=== PATIENT | male | born 1940 | race Caucasian/White ===

== ENCOUNTER → 2017-08-15 | Outpatient (CLI) | payer MEDICARE | LOC: M PLARAD 09:27 | DX: M25.512 Pain in left shoulder (principal) | CPT/HCPCS: 73221 ==

== ENCOUNTER 2024-04-11 06:05 | Day surgery (SDC) | payer MEDICARE ==
[~2024-04-11] VITALS: Ht 165.1 cm; Wt 74.8 kg
[~2024-04-11 06:05] MED LIST: ALFU10TA23 PO; DAPA10TA5 PO; ENTR1TAB7 PO; FARX1TAB3 PO; FINA5TAB2 PO; METO1TAB7 PO; POTA-298 PO; SPIR-10 PO; TAMS1CAP17 PO; TORS20TA2 PO
[2024-04-11] MEDS: LIDOCAINE 3.5 % 1ML OPHTH TOPICAL GEL OU ONE (06:40)
[2024-04-11] MEDS ORDERED: fentaNYL 100 MCG/2 ML INJECTION As Ordered ONE (06:58)
[2024-04-11] MEDS: POVIDONE-IODINE 5% OPHTH PREP SOL 30ML As Ordered ONE (07:50)
[2024-04-11] MEDS: mitoMYcin 0.2 MG/VIAL KIT FOR OPHTHALMIC USE As Ordered ONE (07:50)
[2024-04-11] MEDS: LIDOCAINE 2% W/EPINEPHRINE 20ML VIAL **PRES FREE As Ordered ONE (07:57)
[2024-04-11] MEDS: TOBRADEX OPHTH OINT 3.5 GM As Ordered ONE (07:58)
[2024-04-11 08:05] VITALS: TEMP 97; O2SAT 99
[2024-04-11 08:30] VITALS: BP 169/74
== END 2024-04-11 08:32 | disposition home or self-care (01) ==
LOC: M SDC 06:05
PROVIDERS: ATTEND Ophthalmology
DX: H11.002 Unspecified pterygium of left eye (principal); I10 Essential (primary) hypertension; N40.0 Benign prostatic hyperplasia without lower urinary tract symptoms; I42.9 Cardiomyopathy, unspecified; Z88.0 Allergy status to penicillin; Z79.899 Other long term (current) drug therapy
CPT/HCPCS: 65426; 88304; J3010; J7315; Q4205